=== PATIENT | female | born 1960 | race Two or more races ===

== ENCOUNTER → 2016-08-19 | Outpatient (REF) | payer BC | LOC: M SFHCLERA 17:41 | PROVIDERS: ATTEND Nurse Practitioner Family | DX: J02.9 Acute pharyngitis, unspecified (principal) ==

== ENCOUNTER → 2018-08-11 | Outpatient (REF) | payer BC | LOC: M SFHCLERA 14:28 | PROVIDERS: ATTEND Family Medicine | DX: Z53.9 Procedure and treatment not carried out, unspecified reason (principal); Z13.1 Encounter for screening for diabetes mellitus; Z13.220 Encounter for screening for lipoid disorders; R23.2 Flushing ==

== ENCOUNTER → 2023-03-17 | Outpatient (CLI) | payer BC | LOC: M SOG 08:01 | PROVIDERS: ATTEND Orthopaedic Surgery | DX: M25.511 Pain in right shoulder (principal); M54.2 Cervicalgia; M47.892 Other spondylosis, cervical region ==

== ENCOUNTER → 2023-09-22 | Outpatient (CLI) | payer BC | LOC: M SOG 07:51 | PROVIDERS: ATTEND Physician Assistant | DX: M79.651 Pain in right thigh (principal) ==